=== PATIENT | male | born 1970 | race Hispanic/Latino ===

== ENCOUNTER 2017-05-03 11:10 | Day surgery (SDC) | payer OTHER ==
[2017-05-02 15:35] VITALS: BP 149/85
[2017-05-02 15:50] LABS: BASOPHILS % (AUTO) 0.3 % (0.0-5.0); EOSINOPHILS % (AUTO) 1.8 % (0.0-8.0); HEMATOCRIT 44.1 % (42-54); LYMPHOCYTES % (AUTO) 35.7 % (21.0-51.0); MEAN CORPUSCULAR HEMOGLOBIN 33.5 pg (27.0-33.0); MEAN CORPUSCULAR HGB CONC 35.2 g/dL (32.0-36.0); MEAN CORPUSCULAR VOLUME 95.3 fL (79-99); MONOCYTES % (AUTO) 6.1 % (3.0-13.0); NEUTROPHILS % (AUTO) 56.1 % (40.0-77.0); NUCLEATED RED BLOOD CELLS 0.1 % (0.0-0.19); PLATELET COUNT (AUTO) 276 K/uL (130-400); RED BLOOD CELL COUNT(AUTO) 4.63 MIL/uL (4.50-6.20); RED CELL DISTRIBUTION WIDTH 13.1 % (11.0-15.5); WHITE BLOOD COUNT (AUTO) 7.3 K/uL (4.8-10.8)
[2017-05-02 15:57] LABS: POTASSIUM 3.5 mmol/L (3.5-5.1)
[2017-05-03] VITALS (12 sets, daily range): BP systolic 105–136; BP diastolic 45–84
[~2017-05-03] VITALS: Ht 175.3 cm; Wt 106.0 kg
[~2017-05-03 11:10] MED LIST: CEFAZOLIN 3GM /D5W 100ML 100 ML IV SCH; GABA-529 PO; LISI1TAB11 PO; TRAM50TA4 PO
[2017-05-03] MEDS ORDERED: LACTATED RINGERS 1000ML 1,000 ML IV ONE (11:23)
[2017-05-03] MEDS: CEFAZOLIN SODIUM 1 GM VIAL ONE ×2 (11:43→15:50)
[2017-05-03] MEDS ORDERED: HYDR-4060 PO (11:49)
[2017-05-03] MEDS ORDERED: SUCCINYLCHOLINE 200MG/10ML SYR ONE (16:02)
[2017-05-03] MEDS ORDERED: ONDANSETRON HCL 4 MG/2 ML VIAL ONE (16:02)
[2017-05-03] MEDS ORDERED: DEXAMETHASONE SOD PHOSPHATE 10MG/ML 1ML VIAL ONE (16:02)
[2017-05-03] MEDS ORDERED: LIDOCAINE PF 2% 5ML ABBOJECT ONE (16:02)
[2017-05-03] MEDS ORDERED: NEOSTIGMINE 5MG/5ML SYR IV ONE (16:02)
[2017-05-03] MEDS ORDERED: GLYCOPYRROLATE 0.2 MG/ML 5 ML VIAL ONE (16:02)
[2017-05-03] MEDS ORDERED: EPINEPHRINE 1 MG/ML 30ML VIAL IJ ONE (16:03)
[2017-05-03] MEDS ORDERED: PROPOFOL 10 MG/ML 20ML VIAL IV ONE (16:04)
[2017-05-03] MEDS ORDERED: MIDAZOLAM HCL 1 MG/ML 2ML VIAL ONE (16:04)
[2017-05-03] MEDS ORDERED: FENTANYL CITRATE PF 50 MCG/1 ML 2ML VIAL ONE ×2 (16:04→17:12)
== END 2017-05-03 20:05 | disposition home or self-care (01) ==
LOC: DAH 11:10
PROVIDERS: ATTEND Orthopaedic Surgery
DX: M75.101 Unspecified rotator cuff tear or rupture of right shoulder, not specified as traumatic (principal); M65.811 Other synovitis and tenosynovitis, right shoulder; Q61.3 Polycystic kidney, unspecified; I10 Essential (primary) hypertension; Z79.899 Other long term (current) drug therapy; M54.5 Low back pain; Z68.33 Body mass index [BMI] 33.0-33.9, adult
CPT/HCPCS: 29822; 29827; 36415; 80048; 85025; A4218; A4565; A4649 ×2; A4930; A6204; J0171; J0330; J0690; J1100; J2001; J2250; J2405; J2704; J2710; J3010 ×2; J3490; J7120 ×2